=== PATIENT | female | born 1965 | race Caucasian/White ===

== ENCOUNTER → 2018-08-12 15:48 | Outpatient (CLI) | payer OTHER | END | disposition home or self-care (01) | LOC: D.CT 15:48 | DX: N28.89 Other specified disorders of kidney and ureter (principal) ==

== ENCOUNTER → 2018-09-30 08:39 | Outpatient (CLI) | payer OTHER | END | disposition home or self-care (01) | LOC: D.CT 08:39 | DX: C64.1 Malignant neoplasm of right kidney, except renal pelvis (principal) ==